=== PATIENT | female | born 1940 | race Caucasian/White ===

== ENCOUNTER 2017-08-16 16:28 | Emergency (ER) | END 2017-08-16 22:12 | disposition home or self-care (01) ==

== ENCOUNTER 2018-06-02 11:17 | Emergency (ER) | END 2018-06-02 14:40 | disposition home or self-care (01) ==

== ENCOUNTER 2018-12-31 12:31 | Emergency (ER) | payer MEDICARE, OTHER ==
[~2018-12-31] VITALS: Ht 152.4 cm; Wt 70.0 kg
[~2018-12-31 12:31] MED LIST: ATEN50TA PO; CEPH-443 PO; FLUO20CA22; HYDR-4011 PO; OMEP20CA9 PO; PHEN-538 PO
[2018-12-31 12:35] VITALS: Ht 152.4 cm; Wt 70.0 kg
[2018-12-31] MEDS ORDERED: LIDOCAINE 1% (MPF) 5 ML VIAL INJ ONE (13:00)
[2018-12-31] MEDS ORDERED: CEPH-443 PO (14:12)
[2018-12-31] MEDS ORDERED: NAPR-985 PO (14:12)
[2018-12-31] MEDS ORDERED: CEFAZOLIN 1 GM INJ IM ONE (14:30)
[2018-12-31 14:36] VITALS: BP 170/89; PULSE 81; RESP 20
--- NOTE | 2018-12-31 15:03 | ERD ---
ER Documentation Chief Complaint Chief Complaint hand lac - slammed hand on the door HPI 78-year-old female presenting with laceration to the second and third digit of the right hand. Patient slammed her fingers and doors. She is right-hand dominant. Last tetanus shot was 4 years ago. Denies other medical problems. NKDA. Surgical history denies. Social history denies ROS All systems reviewed and are negative except as per history of present illness. Medications Home Meds Active Scripts Naproxen* (Naprosyn*) 500 Mg Tablet, 500 MG PO BID PRN for PAIN AND/OR INFLAMMATION, #30 TAB Prov:BALAJI EWING PA-C 12/31/18 Cephalexin* (Keflex*) 500 Mg Capsule, 500 MG PO QID for 7 Days, CAP Prov:BALAJI EWING PA-C 12/31/18 Phenazopyridine Hcl* (Pyridium*) 200 Mg Tab, 200 MG PO TID PRN for URINARY PAIN, #6 TAB Prov:DANIELLE PEÑALOZA MD 06/02/18 Cephalexin* (Keflex*) 500 Mg Capsule, 500 MG PO QID for 5 Days, CAP Prov:DANIELLE PEÑALOZA MD 06/02/18 Hydrocodone/Acetaminophen ([place]ard 5-325 Tablet) 1 Each Tablet, 1 TAB PO Q6H PRN for PAIN, #7 TAB Prov:TRUNG WATERS MD 08/16/17 Reported Medications Fluoxetine Hcl* (Fluoxetine Hcl*) 20 Mg Capsule, PO 10/16/12 Omeprazole* (Prilosec*) 20 Mg Capsule.dr, PO DAILY 03/02/11 Atenolol* (Atenolol*) 50 Mg Tablet, PO BID, 0 Refills 12/04/10 Allergies Allergies: Coded Allergies: No Known Drug Allergies (Verified Allergy, Unknown, 10/16/12) PMhx/Soc History of Surgery: Yes (HYSTERECTOMY 35 YRS AGO) Anesthesia Reaction: No Hx Neurological Disorder: Yes (MIGRAINES >20 YRS AGO) Hx Respiratory Disorders: No Hx Cardiac Disorders: Yes (HTN >20YRS) Hx Psychiatric Problems: No Hx Miscellaneous Medical Probl: No Hx Alcohol Use: No Hx Substance Use: No Hx Tobacco Use: No Smoking Status: Never smoker FmHx Family History: No diabetes, No coronary disease, No other Physical Exam Vitals Vital Signs Date Temp Pulse Resp B/P (MAP) Pulse Ox O2 O2 Flow FiO2 Time Delivery Rate 12/31/18 98.8 81 20 170/89 98 Room Air 14:36 (116) 12/31/18 99.1 89 20 235/118 98 12:35 (157) Physical Exam GENERAL: The patient is well-appearing, well-nourished, in no acute distress CHEST: Clear to auscultation bilaterally. There are no rales, wheezes or rhonchi. HEART: Regular rate and rhythm. No murmurs, clicks, rubs or gallops. EXTREMITIES: Equal pulses bilaterally. There is no peripheral clubbing, cyanosis or edema. No focal swelling or erythema. Full range of motion. Grossly neurovascularly intact. NEUROLOGIC: Alert and oriented. Cranial nerves II through XII intact. Motor strength in all 4 extremities with 5 out of 5 strength. Sensation grossly intact. Normal speech and gait. SKIN: 3 linear lacerations to right middle finger and 2 linear lacerations to right index finger. Results 24 hrs Current Medications Medications Dose Sig/Dhaval Start Time Status Last (Trade) Ordered Route PRN Stop Time Admin Dose Reason Admin Lidocaine 5 ml ONCE ONCE 12/31/18 DC (Xylocaine INJ 13:00 1% (Mpf)) 12/31/18 13:01 Cefazolin 1 gm ONCE ONCE 12/31/18 DC 12/31/18 Sodium IM 14:30 14:20 (Ancef) 12/31/18 14:31 Procedures/MDM DIAGNOSTIC IMAGING REPORT Patient: OWEN MONCADA : 1940 Age: 78 Sex: F [id number] DOS: 12/31/18 1245 Ordering MD: BEATA EWING PA-C Location: [facility] Room/Bed: PROCEDURE: XR right hand. CLINICAL INDICATION: Laceration, pain. TECHNIQUE: Three views of the right hand were obtained. COMPARISON: 09/05/2008 FINDINGS: The bone mineralization is decreased. There is soft tissue swelling/laceration of the third digit distally with cortical irregularity of the third digit distal phalanx representing a mildly displaced fracture. The remaining osseous structures are intact. There are moderate degenerative changes at the basal joint and the first metacarpophalangeal joint along with the interphalangeal joint of the thumb and the second through fifth proximal and fifth distal interphalangeal joint. Mild degenerative changes are seen at the remaining distal interphalangeal joints. IMPRESSION: 1. Soft tissue swelling/laceration of the third digit distally with an underlying acute fracture of the third digit distal phalanx without intra- articular extension. 2. Osseous demineralization with degenerative changes of the hand. Laceration Repair by me: Anesthesia: 1% lidocaine locally Location: 2nd and 3rd digit Tendon/Joint/Nerves: No injury Foreign body: None detected after copious irrigation and exploration Technique: Simple Interrupted Sutures Complexity: No subcutaneous sutures/mucosal repair/edge excision Post Closure Length: 5 0.5 cm Patient's bleeding was easily controlled in the department and there is no indication of anemia. No evidence of compartment syndrome, neurologic injury, vascular injury, open joint, tendon laceration, or foreign body. Patient is appropriate for outpatient follow up. 48 hour wound check. Scar minimization instructions given. ER Course: metal finger splint applied in ED. IM injection of Ancef given ED. MDM: 78-year-old female complaining of laceration and pain to right middle finger. I have low suspicion for tendon or ligament rupture. Patient has been open fracture and sutures were placed and splinted. Patient will be discharged on antibiotics to prophylax against infection. Patient is told symptoms change or worsen to return immediately to the ER. All questions answered at discharge. Sutures should be removed within 7 days and wound check performed in 2 days. Departure Diagnosis: Primary Impression: Laceration Condition: Stable Patient Instructions: Fracture, Finger (Open), Laceration, Hand Referrals: [facility] YOU HAVE RECEIVED A MEDICAL SCREENING EXAM AND THE RESULTS INDICATE THAT YOU DO NOT HAVE A CONDITION THAT REQUIRES URGENT TREATMENT IN THE EMERGENCY DEPARTMENT. FURTHER EVALUATION AND TREATMENT OF YOUR CONDITION CAN WAIT UNTIL YOU ARE SEEN IN YOUR DOCTORS OFFICE WITHIN THE NEXT 1-2 DAYS. IT IS YOUR RESPONSIBILITY TO MAKE AN APPOINTMENT FOR FOLOW-UP CARE. IF YOU HAVE A PRIMARY DOCTOR --you should call your primary doctor and schedule an appointment IF YOU DO NOT HAVE A PRIMARY DOCTOR YOU CAN CALL OUR PHYSICIAN REFERRAL HOTLINE AT IF YOU CAN NOT AFFORD TO SEE A PHYSICIAN YOU CAN CHOSE FROM THE FOLLOWING [facility] [address] [facility] [facility] [address] [facility] [facility] [address] [facility] [address] [facility] [address] [facility]. [facility] [address] Additional Instructions: FOLLOW UP WITH YOUR PRIMARY CARE PHYSICIAN TOMORROW.Return to this facility if you are not improving as expected. BALAJI EWING PA-C December 31, 2018 15:03
== END 2018-12-31 14:38 | disposition home or self-care (01) ==
LOC: FTE 12:31
DX: S61.212A Laceration without foreign body of right middle finger without damage to nail, initial encounter (principal); I10 Essential (primary) hypertension; W23.0XXA Caught, crushed, jammed, or pinched between moving objects, initial encounter; Y92.9 Unspecified place or not applicable
CPT/HCPCS: 12002; 73130; 96372; 99284; J0690

== ENCOUNTER → 2019-01-08 | Outpatient (CLI) | payer MEDICARE, OTHER ==
[~2019-01-08] MED LIST changes: +NAPR-985 PO
== END | disposition home or self-care (01) ==
LOC: RAD 12:18
PROVIDERS: ATTEND Emergency Medicine
DX: S62.632A Displaced fracture of distal phalanx of right middle finger, initial encounter for closed fracture (principal); X58.XXXA Exposure to other specified factors, initial encounter; Y92.89 Other specified places as the place of occurrence of the external cause; M79.644 Pain in right finger(s)
CPT/HCPCS: 73140